=== PATIENT | female | born 1985 | race Caucasian/White ===

== ENCOUNTER 2020-08-15 03:45 | Emergency (ER) | payer OTHER ==
[~2020-08-15] VITALS: Ht 154.9 cm; Wt 123.8 kg
[2020-08-15 04:41] LABS: HEMOGLOBIN 10.5 gm/dl (12.3-15.3); RED BLOOD COUNT 4.12 M/UL (4.00-5.10)
[2020-08-15 05:05] LABS: BUN/CREATININE RATIO 17 (0-10)
[2020-08-15] MEDS ORDERED: LEVOFLOXACIN750 MG PO (11:55)
[2020-08-15] MEDS ORDERED: PROVENTIL HFA6.7 GM INH (11:55)
[2020-08-15] MEDS ORDERED: NICOTINE PATCH1 EAC2 TOP (11:55)
== END 2020-08-15 12:11 | disposition left against medical advice (07) ==
LOC: ER1 03:45 → CDU 06:48
PROVIDERS: Emergency Medicine
DX: J15.9 Unspecified bacterial pneumonia (principal); J96.01 Acute respiratory failure with hypoxia; E66.2 Morbid (severe) obesity with alveolar hypoventilation; Z68.43 Body mass index [BMI] 50.0-59.9, adult; J12.9 Viral pneumonia, unspecified; Z20.822 Contact with and (suspected) exposure to COVID-19; E11.9 Type 2 diabetes mellitus without complications; F17.200 Nicotine dependence, unspecified, uncomplicated; I10 Essential (primary) hypertension; Z90.49 Acquired absence of other specified parts of digestive tract; E87.6 Hypokalemia; D64.9 Anemia, unspecified
CPT/HCPCS: 0240U; 71045; 71250; 80053; 81001; 82550; 82553; 82607; 82728; 82746; 82962; 83036; 83605; 83615; 83690; 83874; 83880; 84439; 84443; 84484; 84703; 85025; 85379; 86140; 87040; 93005; 94640; 94664; 96365; 96372; 96375; 99285; C9113; J0696; J1100; J1885; J2405; J2920; J7030

== ENCOUNTER 2020-09-03 20:05 | Emergency (ER) | payer OTHER ==
[~2020-09-03 20:05] MED LIST: LEVOFLOXACIN750 MG PO; NICOTINE PATCH1 EAC2 TOP; PROVENTIL HFA6.7 GM INH
[2020-09-03] MEDS ORDERED: NORFLEX 100 MG100 MG PO (23:32)
[2020-09-03] MEDS ORDERED: LODINE CAP 300300 MG PO (23:32)
== END 2020-09-04 00:23 | disposition home or self-care (01) ==
LOC: ER1 20:05
DX: S46.911A Strain of unspecified muscle, fascia and tendon at shoulder and upper arm level, right arm, initial encounter (principal); S46.811A Strain of other muscles, fascia and tendons at shoulder and upper arm level, right arm, initial encounter; E11.9 Type 2 diabetes mellitus without complications; I10 Essential (primary) hypertension; F17.210 Nicotine dependence, cigarettes, uncomplicated; V49.9XXA Car occupant (driver) (passenger) injured in unspecified traffic accident, initial encounter
CPT/HCPCS: 73060; 73090; 99283